=== PATIENT | male | born 1960 | race Caucasian/White ===

== ENCOUNTER 2018-02-24 04:26 | Emergency (ER) | payer SELFPAY ==
[2018-02-24 04:27] VITALS: BP 163/109; PULSE 103; RESP 18; TEMP 36.6; O2SAT 96; BMI 27.7
--- NOTE | 2018-02-24 04:51 | CT_ITS ---
STUDY: CT ABDOMEN AND PELVIS WITHOUT CONTRAST REASON FOR EXAM: Male, 58 years old. Right lower quadrant pain. RADIATION DOSAGE (If Supplied By Facility): CTDIvol = ( 10.64 ) mGy, DLP = ( 537.08 ) mGycm TECHNIQUE: Transaxial images were obtained from the dome of the diaphragm to the symphysis pubis without oral contrast, and without intravenous contrast. Sagittal and coronal images were reconstructed. Individualized dose optimization techniques were used for this CT. COMPARISON: None. FINDINGS: There is mild atelectasis in the visualized posterior lung bases. The visualized portions of the heart are within normal limits. There are coronary artery calcifications. Normal liver. Normal gallbladder and extrahepatic biliary system. Normal spleen. Normal pancreas. Normal bilateral adrenal glands. There is mild hydronephrosis of the right kidney as well as mild right hydroureter. There is prominent right perinephric fat infiltration as well as mild right periureteral fat infiltration. There is no demonstrated renal or ureteral calculus. There is a small area of cortical scarring in the posterior upper pole of the left kidney. There is no demonstrated hydronephrosis of the left kidney and there is no demonstrated left renal or ureteral calculus. There is a small hiatal hernia. Normal small intestine. Normal colon. The appendix is visualized on axial images 68-85 and it appears normal.. There is mild atherosclerotic calcification of the abdominal aorta, without a demonstrated aneurysm. Normal inferior vena cava. Normal retroperitoneum. Normal urinary bladder. There is a small umbilical hernia containing fat, but no bowel.. There are multilevel degenerative changes of the visualized lumbar spine. CT/Abdomen/Pelvis without Cont IMPRESSION: Mild right hydronephrosis and hydroureter as well as right perinephric and periureteral fat infiltration, but without demonstrated renal calculus. Findings may represent recent passage of right ureteral calculus. Other possible etiologies would include pyelonephritis or right ureteral obstruction of indeterminate etiology. Small hiatal hernia. Atherosclerosis. Electronically Signed: Duran Hanson MD at 6:17 EDT , Service support ,
[2018-02-24] MEDS: Ketorolac 30 MG/ML Syringe 15 MG IV (05:04)
[2018-02-24] MEDS: Ondansetron 4 MG/2 ML Vial IV (05:04)
[2018-02-24 05:12] LABS: Absolute Lymphocyte Count 0.68 X10^3/ul (0.83-4.51); Absolute Neutrophil Count 10.3 X10^3/uL (2.0-7.7); Basophil# 0.02 X10^3/uL; Basophil% 0.2 % (0-1); Eosinophil# 0.01 X10^3/uL; Eosinophils% 0.1 % (0-5); Hematocrit 41.1 % (40-54); Hemoglobin 14.2 g/dl (13.0-16.5); Lymphocyte # 0.68 X10^3/ul (4.0); Lymphocyte % 5.8 % (19-41); Mean Corp Hgb Conc 34.5 g/gl (32-36); Mean Corpuscular Hgb 32.3 pg (27.0-32.0); Mean Corpuscular Volume 93.6 fL (80-94); Mean Platelet Vol. 10.8 fl (6.2-12.0); Monocyte# 0.76 X10^3/uL; Monocyte% 6.5 % (0-10); Neutrophil # 10.25 X10^3/uL (2.7-7.7); Platelet Count 239 K/mm3 (150-450); RBC Distribution Width CV 12.4 % (11.6-14.6); RBC Distribution Width SD 41.9 fl (35.1-43.9); Red Blood Count 4.39 M/mm3 (4.6-6.2); White Blood Count 11.8 K/mm3 (4.4-11.0)
[2018-02-24 05:27] LABS: POSITIVE COUNT NO; POSITIVE DIFFERENTIAL NO; POSITIVE MORPHOLOGY NO
[2018-02-24 05:39] LABS: Anion Gap 13 (5-15); BUN 28 mg/dL (7-18); BUN/Creat Ratio 15.1 RATIO (10-20); Chloride 106 mmol/L (98-107); Creatinine, Serum 1.85 mg/dL (0.70-1.30); EST Glomerular Filtration Rate 40 mL/min (>60); Est Glom Filt Rate - Afr Amer 49 mL/min (>60); Estimated Creatinine Clearance 41.68 ml/min; Glucose 112 mg/dL (74-106); Sodium Level 142 mmol/L (136-145)
[2018-02-24 07:11] VITALS: BP 134/101; PULSE 105; RESP 16; O2SAT 97
[2018-02-24 07:21] LABS: Bacteria 0 SEEN /hpf (None Seen); Mucous, Urine 0 SEEN /hpf (<or=2+); Squamous Epithelial Cells - UA 0 SEEN /hpf (0-5); White Blood Cells 0 SEEN /hpf (0-5)
--- NOTE | 2018-02-24 07:43 | ED.VISSUMM ---
- ER Visit Summary Date of Service: 02/24/18 Chief Complaint: Abdominal pain History of Present Illness: The patient is a 58 M presenting for evaluation secondary to abdominal pain. Patient reports that this evening he had a sudden onset of abdominal pain. It is located in his right lower quadrant and seems to go up into his right flank. It is a continuous sharp pain worse with palpation and has been associated with nausea vomiting diarrhea but he did not urinary symptoms. Patient states that the pain started directly after he and his finished intercourse. Patient states that he has never had any similar pain in the past. Denies any hematuria. Review of systems otherwise negative. Physical Examination: Vital signs are notable for mild tachycardia with a rate of 105. Well-nourished male no acute distress. Moist mucous membranes. No JVD. Heart was regular rate and rhythm on my exam or in the 90s, lungs sounds clear to auscultation bilaterally. Abdomen was minimally tender in the right lower quadrant no guarding no rebound no Rovsing sign, no CVA tenderness to percussion no evidence of overlying vesicular rash. Old scar present from the patient's prior PEG tube. Remainder the physical otherwise unremarkable. Test Results: CT abdomen and pelvis shows right-sided hydronephrosis with perinephric stranding but no evidence of obstructive uropathy. CBC unremarkable, chemistry shows mild elevation the patient's creatinine to 1.8 from a baseline of 1.2 little over a year ago, urinalysis is pending Emergency Department Course and Treatment: Patient presented for evaluation secondary to right lower quadrant pain and flank pain. He was given Toradol Zofran and on repeat evaluation at 730 he had resolution of his pain. CT showed hydronephrosis which is suspicious for the possibility of the patient having passed a kidney stone. Urinalysis showed no evidence of infection. Lab work showed only a mild amount acute kidney injury. Patient had no pain on repeat evaluation again at 846. This point I believe patient can safely be discharged outpatient follow-up with urology. All questions were answered patient was discharged. Disposition: Discharge Impression: 1. Renal colic, likely recently passed kidney stone This note was generated with [employer] dictation software. It may contain incorrect words, spelling, and punctuation that were not noted in review of the chart prior to signing ED Disposition - Plan for ED Patient: Disposition: Home or Assisted Living Chief Complaint: Abd Pain Diagnosis: Kidney stone Instructions: ED Stone Renal Passed Referrals: Eboni Ibrahim MD [STAFF PHYSICIAN] - 1 Week
[2018-02-24 08:00] LABS: Color, Urine Yellow (Yellow); Glucose, Dipstick Normal (Normal); Ketone-Dipstick 15 mg/dl (Negative); Leukocyte Esterase-Dipstick Negative /ul (Negative); Nitrite-Dipstick Negative (Negative); Occult Blood-Urine 150 /ul (Negative); Protein-Dipstick 15 mg/dl (Negative); Urine Bilirubin Dipstick Negative (Negative); Urine Clarity Clear (Clear); Urine Urobilinogen Normal (Normal)
[2018-02-24 08:11] LABS: Red Blood Cells-Urine 0-5 SEEN /hpf (0-5)
[2018-02-24 08:56] VITALS: BP 128/99; PULSE 87; RESP 16; O2SAT 98
== END 2018-02-24 08:56 | disposition home or self-care (01) ==
PROVIDERS: Emergency Provider Emergency Medicine; Family Provider Physician Assistant; PCP Physician Assistant
DX: N23 Unspecified renal colic (principal); N13.30 Unspecified hydronephrosis; N17.9 Acute kidney failure, unspecified; R00.0 Tachycardia, unspecified; Z85.21 Personal history of malignant neoplasm of larynx
CPT/HCPCS: 74176; 80048; 81001; 85025; 96374; 96375; 99283; J2405

== ENCOUNTER 2020-10-05 18:06 | Emergency (ER) | payer SELFPAY ==
[2020-10-05 18:06] VITALS: BP 154/100; PULSE 103; RESP 16; TEMP 36.8; O2SAT 96; BMI 28.1
[2020-10-05 18:41] LABS: Absolute Lymphocyte Count 1.37 X10^3/uL (0.83-4.51); Basophil# 0.05 X10^3/uL; Basophil% 0.7 % (0-1); Eosinophils% 1.3 % (0-5); Hematocrit 41.7 % (40-54); Hemoglobin 13.5 g/dL (13.0-16.5); Lymphocyte # 1.37 X10^3/ul (0.83-4.51); Lymphocyte % 18.3 % (19-41); Mean Corp Hgb Conc 32.4 g/dL (32-36); Mean Corpuscular Hgb 31.8 pg (27.0-32.0); Mean Corpuscular Volume 98.1 fL (80-94); Mean Platelet Vol. 10.7 fl (6.2-12.0); Monocyte# 0.89 X10^3/uL; Monocyte% 11.9 % (0-10); NRBC Flagged by Analyzer 0 % (0-5); Neutrophil # 5.04 X10^3/uL (2.7-7.7); Neutrophil % 67.1 % (47-70); Platelet Count 260 K/mm3 (150-450); RBC Distribution Width CV 12.1 % (11.6-14.6); RBC Distribution Width SD 43.9 fl (35.1-43.9); Red Blood Count 4.25 M/mm3 (4.6-6.2); White Blood Count 7.5 K/mm3 (4.4-11.0)
--- NOTE | 2020-10-05 18:47 | EX.ED.DYSGE1 ---
HPI <Dr. Luca Adams DO - Last Filed: 10/05/20 20:52> History of Present Illness Informant: patient and spouse/S.O. Narrative Narrative: 60-year-old male presents with concern for left flank pain. States it began this morning. States it started in his left back and radiates around to his left lower quadrant. States it is aching in nature. No relieving or worsening factors. Admits to nausea with one episode of vomiting. Nonbloody and nonbilious. Denies any urinary symptoms. Denies any fever, chills, chest pain, shortness of breath. Patient states that he did have a kidney stone approximately 2 years ago and this feels somewhat different given its location. [facility] <Dr. Luca Adams DO - Last Filed: 10/05/20 20:52> [facility] Medical History (Updated 10/06/20 @ 00:00 by Background Daemon) Cancer Former smoker Tracheal cancer Home Medications cephalexin 500 mg PO Q6 #28 capsule 10/05/20 [Rx Last Taken Unknown] ondansetron 4 mg PO Q8H PRN #12 tab 10/05/20 [Rx Last Taken Unknown] oxycodone-acetaminophen [Percocet] 1 tab PO Q8H PRN 2 Days #6 tab 10/05/20 [Rx Last Taken Unknown] tamsulosin [Flomax] 0.4 mg PO DAILY #7 cap 10/05/20 [Rx Last Taken Unknown] Allergy/AdvReac Type Severity Reaction Status Date / Time No Known Allergies Allergy Verified 10/05/20 18:08 Social History Smoking Status: Former smoker ROS <Dr. Luca Adams, - Last Filed: 10/05/20 20:52> ROS ED Constitutional Constitutional ED: Denies chills, fever(s) or sweats Eyes Eyes: Denies blurry vision, change in vision or diplopia ENT ENT ED: Denies rhinorrhea or sore throat Cardiovascular Cardiovascular: Denies chest pain, orthopnea, palpitations or racing heartbeat Respiratory/Chest Respiratory/Chest: Denies cough, dyspnea, dyspnea on exertion, orthopnea or sputum Gastrointestinal Gastrointestinal: Reports nausea, vomiting and other Details: left flank pain ; Denies abdominal pain, constipation, diarrhea or melena Genitourinary Genitourinary ED: Denies dysuria, hematuria or urinary frequency Musculoskeletal Musculoskeletal: Denies arthralgias, myalgias or neck pain Integumentary Denies rash Neurologic Neurologic: Denies headache(s), paresthesias or weakness Psychiatric Psychiatric: Denies anxiety or depression Hematologic/Lymphatic Hematologic/Lymphatic: Denies easy bleeding or easy bruising Allergic/Immunologic Allergic/Immunologic ED: Denies mouth swelling or tongue swelling EXAM <Dr. Luca Adams DO - Last Filed: 10/05/20 20:52> Physical Exam Const Vital Signs: 10/05/20 19:48 10/05/20 21:03 Pulse Rate 99 90 Respiratory Rate 18 15 Blood Pressure 173/105 H 162/105 H Blood Pressure Mean 127 Pulse Ox 96 99 Oxygen Delivery Method Room Air Positive well nourished and well developed General Appearance ED: well developed HEENT Reports TM's clear and moist mucous membranes normocephalic and atraumatic Tympanic Membrane ED: Yes TM's clear Eyes PERRL and EOMs intact bilaterally Neck no lymphadenopathy, supple and no JVD Chest Wall inspection of chest normal Resp normal respiratory effort and clear to auscultation bilaterally Cardio regular rate, S1 normal heart sound, S2 normal heart sound and no murmurs Peripheral Pulses: pulses 2+ throughout GI soft to palpation, non-tender and non-distended; Negative for hepatosplenomegaly Inspection: Negative for abdominal distention Back/Spine no CVA tenderness and no thoracic nor lumbar tenderness Extremity normal to inspection General Extremety ED: Negative for edema or tenderness General Extremity: Negative for edema Neuro oriented x3, CN's II-XII intact bilaterally and no sensory deficits noted Sensorium / Orientation: alert Motor Exam: strength 5/5 throughout Psych mental status grossly normal Skin no rashes or lesions noted <Dr. Earl Delgado MD - Last Filed: 10/06/20 18:50> Physical Exam Const Vital Signs: 10/05/20 19:48 10/05/20 21:03 Pulse Rate 99 90 Respiratory Rate 18 15 Blood Pressure 173/105 H 162/105 H Blood Pressure Mean 127 Pulse Ox 96 99 Oxygen Delivery Method Room Air MDM <Dr. Luca Adams DO - Last Filed: 10/05/20 20:52> [facility] MDM Narrative Medical decision making narrative: Patient appears well and nontoxic. Vital signs upon arrival show slight tachycardia as well as elevated blood pressure. Normotensive. Afebrile. Normal white blood cell count. No significant urinary tract infection with microscopic hematuria. Chronic kidney disease improved from previous. Patient given 1 L of normal saline, Zofran, morphine. Feeling much improved. CT of the abdomen pelvis shows no acute stone however there is hydroureter as well as hydronephrosis with perinephric stranding. Patient likely did pass a kidney stone however will be placed on antibiotic therapy and given Percocet, Zofran, Flomax for home. Asked to follow-up with his primary care provider Dr. Esteban as well as Dr. Keys, urologist. Stable at time of discharge. Lab Data Labs: Laboratory Results - last 24 hr 10/05/20 10/05/20 18:35 19:07 Sodium 138 Potassium 4.1 Chloride 107 Carbon Dioxide 22.0 Anion Gap 9 BUN 24 H Creatinine 1.53 H Estim Creat Clear Calc 49.20 Est GFR (MDRD) Af Amer 60 Est GFR (MDRD) Non-Af 50 L BUN/Creatinine Ratio 15.7 Glucose 98 Calcium 8.5 Total Bilirubin 0.30 AST 40 H ALT 34 Alkaline Phosphatase 102 Total Protein 7.6 Albumin 3.8 Globulin 3.8 Albumin/Globulin Ratio 1.0 Urine Color Yellow Urine Clarity Clear Urine pH 5.0 Ur Specific [place] 1.020 Urine Protein 30 H Urine Glucose (UA) Normal Urine Ketones Negative Urine Occult Blood 25 H Urine Nitrite Negative Urine Bilirubin Negative Urine Urobilinogen Normal Ur Leukocyte Esterase 25 H Urine RBC 0-5 SEEN Urine WBC 0-5 SEEN Ur Squamous Epith Cells 0-5 SEEN Urine Bacteria 0 SEEN Urine Mucus 0 SEEN Radiography Diagnostic Testing: Radiology Impression Abdomen/Pelvis CT 10/05/20 19:19 IMPRESSION: Mild left sided hydroureter and hydronephrosis with periureteral and perinephric fat stranding. No calcified obstructing stone. Consider either ascending infection urinary tract with pyelonephritis with possible [id number] stone or obstructing lesion, as well as recently passed stone. Mild urinary bladder wall thickening. Correlate clinically for cystitis. Electronically Signed: Alex Antonio MD at 20:35 EDT Tel , Service support , <Dr. Earl Delgado MD - Last Filed: 10/06/20 18:50> MDM Lab Data Labs: Laboratory Results - last 24 hr 10/05/20 10/05/20 18:35 19:07 Sodium 138 Potassium 4.1 Chloride 107 Carbon Dioxide 22.0 Anion Gap 9 BUN 24 H Creatinine 1.53 H Estim Creat Clear Calc 49.20 Est GFR (MDRD) Af Amer 60 Est GFR (MDRD) Non-Af 50 L BUN/Creatinine Ratio 15.7 Glucose 98 Calcium 8.5 Total Bilirubin 0.30 AST 40 H ALT 34 Alkaline Phosphatase 102 Total Protein 7.6 Albumin 3.8 Globulin 3.8 Albumin/Globulin Ratio 1.0 Urine Color Yellow Urine Clarity Clear Urine pH 5.0 Ur Specific [place] 1.020 Urine Protein 30 H Urine Glucose (UA) Normal Urine Ketones Negative Urine Occult Blood 25 H Urine Nitrite Negative Urine Bilirubin Negative Urine Urobilinogen Normal Ur Leukocyte Esterase 25 H Urine RBC 0-5 SEEN Urine WBC 0-5 SEEN Ur Squamous Epith Cells 0-5 SEEN Urine Bacteria 0 SEEN Urine Mucus 0 SEEN Radiography Diagnostic Testing: Radiology Impression Abdomen/Pelvis CT 10/05/20 19:19 IMPRESSION: Mild left sided hydroureter and hydronephrosis with periureteral and perinephric fat stranding. No calcified obstructing stone. Consider either ascending infection urinary tract with pyelonephritis with possible [id number] stone or obstructing lesion, as well as recently passed stone. Mild urinary bladder wall thickening. Correlate clinically for cystitis. Electronically Signed: Alex Antonio MD at 20:35 EDT Tel , Service support , Discharge Plan Triage Chief Complaint: Flank Pain ED Provider: Luca Adams Dx/Rx/DC Orders Clinical Impression: Acute flank pain, Hydronephrosis of left kidney Instructions: ED Kidney Stone, Passed Prescriptions: New cephalexin 500 mg capsule 500 mg PO Q6 Qty: 28 RF: 0 oxycodone-acetaminophen [Percocet] 5-325 mg tablet 1 tab PO Q8H PRN (Reason: pain) 2 Days Qty: 6 RF: 0 ondansetron 4 mg tablet,disintegrating 4 mg PO Q8H PRN (Reason: nausea and vomiting) Qty: 12 RF: 0 tamsulosin [Flomax] 0.4 mg capsule 0.4 mg PO DAILY Qty: 7 RF: 0 Primary Care Provider: Maria Guadalupe Esteban Referrals: Dejuan Keys MD [STAFF PHYSICIAN] - 3-5 Days if not improving Maria Guadalupe Esteban PA [Primary Care Provider] - 2 Days Disposition Disposition: Home, self care Discharge Date/Time: 10/05/20 21:04 <Dr. Earl Delgado MD - Last Filed: 10/06/20 18:50> Addt'l Comments Chart opened in error
[2020-10-05] MEDS: Morphine 4 MG/ML Syringe IV (18:48)
[2020-10-05] MEDS: 0.9% Normal Saline 1,000 ML 1000 ML IV (18:48)
[2020-10-05] MEDS: Ondansetron 4 MG/2 ML Vial IV (18:49)
[2020-10-05 18:58] LABS: AST(SGOT) 40 U/L (15-37); Alanine Aminotransfer ALT/SGPT 34 U/L (16-61); Albumin, Serum 3.8 g/dL (3.2-5.0); Alkaline Phosphatase 102 U/L (45-117); Anion Gap 9 (5-15); BUN 24 mg/dL (7-18); BUN/Creat Ratio 15.7 RATIO (10-20); Calcium,Total 8.5 mg/dL (8.5-10.1); Chloride 107 mmol/L (98-107); Creatinine, Serum 1.53 mg/dL (0.70-1.30); EST Glomerular Filtration Rate 50 mL/min (>60); Est Glom Filt Rate - Afr Amer 60 mL/min (>60); Globulin 3.8 g/dL (2.2-4.2); Glucose 98 mg/dL (74-106); Potassium 4.1 mmol/L (3.5-5.1); Protein, Total 7.6 g/dL (6.4-8.2); Sodium Level 138 mmol/L (136-145)
[2020-10-05 19:14] LABS: Bacteria 0 SEEN /hpf (None Seen); Mucous, Urine 0 SEEN /hpf (<or=2+)
[2020-10-05 19:15] LABS: Color, Urine Yellow (Yellow); Glucose, Dipstick Normal (Normal); Ketone-Dipstick Negative (Negative); Leukocyte Esterase-Dipstick 25 /ul (Negative); Nitrite-Dipstick Negative (Negative); Occult Blood-Urine 25 /ul (Negative); Protein-Dipstick 30 mg/dl (Negative); Urine Bilirubin Dipstick Negative (Negative); Urine Clarity Clear (Clear); Urine Urobilinogen Normal (Normal)
--- NOTE | 2020-10-05 19:19 | CT_ITS ---
STUDY: CT ABDOMEN AND PELVIS WITH CONTRAST REASON FOR EXAM: Male, 60 years old. Pain RADIATION DOSAGE (If Supplied By Facility): DLP = ( 1251.76 ) mGycm TECHNIQUE: Transaxial images were obtained from the dome of the diaphragm to the symphysis pubis with IV contrast. Sagittal and coronal images were reconstructed. Individualized dose optimization techniques were used for this CT. COMPARISON: CT abdomen pelvis 02/24/2018 FINDINGS: The visualized lung bases are clear. The visualized portions of the heart and pericardium are within normal limits. There are no calcified gallstones present. The liver is within normal limits. There are no suspicious hepatic lesions. The spleen is normal in size. The pancreas is within normal limits. The adrenal glands are within normal limits. There are no obstructing renal stones. There is mild left sided hydroureter and hydronephrosis with periureteral and perinephric fat stranding. There is mild urinary bladder wall thickening. Normal visualized stomach. There is no bowel obstruction or inflammation. The aorta is normal in caliber. There is no abdominal or pelvic free air, free fluid, fluid collection or lymphadenopathy. There are no destructive osseous lesions. CT/Abdomen/Pelvis W IV Cont ONLY IMPRESSION: Mild left sided hydroureter and hydronephrosis with periureteral and perinephric fat stranding. No calcified obstructing stone. Consider either ascending infection urinary tract with pyelonephritis with possible [id number] stone or obstructing lesion, as well as recently passed stone. Mild urinary bladder wall thickening. Correlate clinically for cystitis. Electronically Signed: Alex Antonio MD at 20:35 EDT Tel , Service support ,
[2020-10-05 19:30] LABS: Red Blood Cells-Urine 0-5 SEEN /hpf (0-5); Squamous Epithelial Cells - UA 0-5 SEEN /hpf (0-5); White Blood Cells 0-5 SEEN /hpf (0-5)
[2020-10-05 19:48] VITALS: BP 173/105; PULSE 99; RESP 18; O2SAT 96
[2020-10-05 21:03] VITALS: BP 162/105; PULSE 90; RESP 15; O2SAT 99
== END 2020-10-05 21:04 | disposition home or self-care (01) ==
PROVIDERS: Emergency Provider Emergency Medicine; PCP Physician Assistant
DX: R10.9 Unspecified abdominal pain (principal); N13.30 Unspecified hydronephrosis; R11.2 Nausea with vomiting, unspecified; Z79.899 Other long term (current) drug therapy; Z87.442 Personal history of urinary calculi; Z87.891 Personal history of nicotine dependence
CPT/HCPCS: 74177; 80053; 81001; 85025; 96361; 96374; 96375; 99283; J7030; Q9967; A4216; J2405